=== PATIENT | male | born 1980 | race Two or more races ===

== ENCOUNTER 2018-10-19 15:46 | Emergency (ER) | payer MEDICAID ==
[~2018-10-19] VITALS: Ht 172.7 cm; Wt 74.8 kg
[2018-10-19] MEDS ORDERED: Ketorolac 30mg Inj IV ONE (16:00)
[2018-10-19] MEDS ORDERED: Morphine Sulfate 4mg/ml Inj (IV/IM USE ONLY) IVP ONE (16:00)
[2018-10-19 16:23] VITALS: BP 158/91
[2018-10-19 16:46] LABS: BASOPHILS % (AUTO) 0.8 % (0.0-2.0); EOSINOPHILS % (AUTO) 0.7 % (0.0-3.0); HEMATOCRIT 46.7 % (42.0-52.0); HEMOGLOBIN 15.5 G/DL (14.2-18.0); LYMPHOCYTES % (AUTO) 8.3 % (20.0-45.0); MEAN CORPUSCULAR VOLUME 83 FL (80-99); MONOCYTES % (AUTO) 6.3 % (1.0-10.0); NEUTROPHILS % (AUTO) 83.9 % (45.0-75.0); PLATELET COUNT 153 K/UL (150-450); RED BLOOD COUNT 5.62 M/UL (4.70-6.10); RED CELL DISTRIBUTION WIDTH 12.4 % (11.6-14.8); WHITE BLOOD COUNT 10.6 K/UL (4.8-10.8)
[2018-10-19] MEDS ORDERED: NKM (16:50)
[2018-10-19 16:55] LABS: APPEARANCE,URINE CLEAR; BILIRUBIN, URINE NEGATIVE (NEGATIVE); COLOR,URINE PALE YELLOW; GLUCOSE, URINE (UA) NEGATIVE (NEGATIVE); KETONES,URINE NEGATIVE (NEGATIVE); LEUKOCYTE ESTERASE ,URINE NEGATIVE (NEGATIVE); NITRITE,URINE NEGATIVE (NEGATIVE); PH,URINE 6 (4.5-8.0); PROTEIN,URINE 1+ (NEGATIVE); UROBILINOGEN,URINE NORMAL MG/DL (0.0-1.0)
[2018-10-19 17:06] LABS: ANION GAP 10 mmol/L (5-15); BLOOD UREA NITROGEN 16 mg/dL (7-18); CALCIUM 9.3 MG/DL (8.5-10.1); CARBON DIOXIDE 27 MMOL/L (21-32); CHLORIDE 102 MMOL/L (98-107); CREATININE 1.1 MG/DL (0.55-1.30); POTASSIUM 3.2 MMOL/L (3.5-5.1); SODIUM 139 MMOL/L (136-145)
[2018-10-19 17:15] LABS: ALANINE AMINOTRANSFERASE 34 U/L (12-78); ALBUMIN 4.3 G/DL (3.4-5.0); ALBUMIN/GLOBULIN RATIO 1.1 (1.0-2.7); ALKALINE PHOSPHATASE 106 U/L (46-116); ASPARTATE AMINO TRANSFERASE 39 U/L (15-37); BILIRUBIN,TOTAL 0.4 MG/DL (0.2-1.0)
--- NOTE | 2018-10-19 17:33 | Emergency Room Report ---
History of Present Illness General Chief Complaint: Abdominal Pain Source: Patient, EMS Present Illness HPI Patient presents with left flank pain that is severe. He was seen at [facility] yesterday and told that he has a kidney stone. Had a CAT scan done. The pain is now severe radiating down to his groin. Denies any fevers or chills. He doesn't know how large the stone was that they found yesterday. Apparently he's had multiple stones in the past. Feels nauseated but has not vomited. No hematuria. He tried the pain medicine they prescribed without any help. Pain rated 10/10 burning and aching pressure. Never sent a stone for analysis. No chest pain, headache, URI sy, rashes, joint pain, change in bowels. Allergies: Coded Allergies: No Known Allergies (Unverified , 10/19/18) Patient History Past Medical History: see triage record, other - renal stones Social History: Denies: smoking Social History Narrative from home Reviewed Nursing Documentation: PMH: Agreed; PSxH: Agreed Nursing Documentation-PMH Past Medical History: No Stated History Review of Systems All Other Systems: negative except mentioned in HPI Physical Exam Vital Signs Date Time Temp Pulse Resp B/P (MAP) Pulse Ox O2 Delivery O2 Flow Rate FiO2 10/19/18 15:42 98.6 83 18 179/105 98 Room Air Sp02 EP Interpretation: reviewed, normal General Appearance: alert, GCS 15, mild distress Head: normocephalic Eyes: bilateral eye normal inspection, bilateral eye PERRL ENT: moist mucus membranes Neck: supple Respiratory: lungs clear, normal breath sounds Cardiovascular #1: regular rate, rhythm Cardiovascular #2: 2+ radial (R) Gastrointestinal: normal inspection, normal bowel sounds, non tender, no mass, non-distended Genitourinary: no CVA tenderness Musculoskeletal: back normal, normal range of motion Neurologic: alert, oriented x3, grossly normal Psychiatric: anxious - wih pain Skin: warm/dry, other - sallo Medical Decision Making Diagnostic Impression: Primary Impression: Renal colic on left side ER Course Patient presents with left flank pain with history of renal stones. Differential includes UTI, renal stone, obstruction. We will attempt to get a CT scan results from [facility]. He'll be treated with IV hydration and analgesia. In addition to that labs will be obtained to assess renal function and to exclude infection. Labs with normal CBC, slightly low K and few RBCs in urine. After initial medication the pain is now down to 3/10. We are still awaiting results from [facility]. Records from [facility] reviewed: CT with 2mm stone L with mild hydroureter. Pain resolved 19:20. No more pain. Discussed stone collection for analysis and outpatient treatment plan. Patient stable for outpatient observation and treatment. Laboratory Tests Test 10/19/18 15:50 10/19/18 16:10 10/19/18 16:15 White Blood Count 10.6 K/UL (4.8-10.8) Red Blood Count 5.62 M/UL (4.70-6.10) Hemoglobin 15.5 G/DL (14.2-18.0) Hematocrit 46.7 % (42.0-52.0) Mean Corpuscular Volume 83 FL (80-99) Mean Corpuscular Hemoglobin 27.6 PG (27.0-31.0) Mean Corpuscular Hemoglobin Concent 33.2 G/DL (32.0-36.0) Red Cell Distribution Width 12.4 % (11.6-14.8) Platelet Count 153 K/UL (150-450) Mean Platelet Volume 10.3 FL (6.5-10.1) H Neutrophils (%) (Auto) 83.9 % (45.0-75.0) H Lymphocytes (%) (Auto) 8.3 % (20.0-45.0) L Monocytes (%) (Auto) 6.3 % (1.0-10.0) Eosinophils (%) (Auto) 0.7 % (0.0-3.0) Basophils (%) (Auto) 0.8 % (0.0-2.0) Sodium Level 139 MMOL/L (136-145) Potassium Level 3.2 MMOL/L (3.5-5.1) L Chloride Level 102 MMOL/L (98-107) Carbon Dioxide Level 27 MMOL/L (21-32) Anion Gap 10 mmol/L (5-15) Blood Urea Nitrogen 16 mg/dL (7-18) Creatinine 1.1 MG/DL (0.55-1.30) Estimate Glomerular Filtration Rate > 60 mL/min (>60) Glucose Level 117 MG/DL (74-106) H Calcium Level 9.3 MG/DL (8.5-10.1) Total Bilirubin 0.4 MG/DL (0.2-1.0) Aspartate Amino Transferase (AST) 39 U/L (15-37) H Alanine Aminotransferase (ALT) 34 U/L (12-78) Alkaline Phosphatase 106 U/L (46-116) Total Protein 8.1 G/DL (6.4-8.2) Albumin 4.3 G/DL (3.4-5.0) Globulin 3.8 g/dL Albumin/Globulin Ratio 1.1 (1.0-2.7) Lipase 90 U/L (73-393) Urine Color Pale yellow Urine Appearance Clear Urine pH 6 (4.5-8.0) Urine Specific [place] 1.020 (1.005-1.035) Urine Protein 1+ (NEGATIVE) H Urine Glucose (UA) Negative (NEGATIVE) Urine Ketones Negative (NEGATIVE) Urine Blood 2+ (NEGATIVE) H Urine Nitrite Negative (NEGATIVE) Urine Bilirubin Negative (NEGATIVE) Urine Urobilinogen Normal MG/DL (0.0-1.0) Urine Leukocyte Esterase Negative (NEGATIVE) Urine RBC 2-4 /HPF (0 - 0) H Urine WBC 0-2 /HPF (0 - 0) Urine Squamous Epithelial Cells None /LPF (NONE/OCC) Urine Bacteria None /HPF (NONE) Last Vital Signs Date Time Temp Pulse Resp B/P (MAP) Pulse Ox O2 Delivery O2 Flow Rate FiO2 10/19/18 19:30 98.6 80 20 130/84 100 Room Air Status: improved Disposition: HOME, SELF-CARE Condition: Improved Referrals: NOT CHOSEN IPA/,REFERRING (PCP) Vlad Cruz MD Oct 19, 2018 17:33
[2018-10-19] MEDS ORDERED: Tamsulosin 0.4mg cap ORAL STA (17:57)
[2018-10-19 19:29] VITALS: BP 130/84
[2018-10-19 19:30] VITALS: BP 130/84
[2018-10-19] MEDS ORDERED: Tamsulosin 0.4mg cap ORAL SCH (21:00)
== END 2018-10-19 19:33 | disposition home or self-care (01) ==
LOC: EDBD 15:46 → EMR 16:30
DX: N23 Unspecified renal colic (principal); Z87.442 Personal history of urinary calculi
CPT/HCPCS: 36415; 80053; 81003; 83690; 85025; 96361; 96374; 96375; 99284; J1885; J2270; J2405

== ENCOUNTER 2018-11-02 17:57 | Emergency (ER) | payer MEDICAID ==
[~2018-11-02] VITALS: Ht 170.2 cm; Wt 77.1 kg
[~2018-11-02 17:57] MED LIST: NKM
[2018-11-02 18:43] VITALS: BP 136/81
--- NOTE | 2018-11-02 18:45 | NUR ---
ED Nurse Note: here for eval; patient passed stones in the urine 4 days ago. hx of kidney stone; c/o pain on the right sided abdomen; reports no blood in urine.
[2018-11-02 19:45] VITALS: BP 132/78
--- NOTE | 2018-11-02 19:45 | NUR ---
ED Nurse Note: patient is being discharged from ED alert and oriented x4, ambulatory with a steady gait, VSS. patient acknowledged the need to follow up with PMD within a week if symptoms dont improve. Id band removed, all belongings sent home with patient, prescriptions in hand
--- NOTE | 2018-11-02 19:50 | Emergency Room Report ---
History of Present Illness General Chief Complaint: Abdominal Pain Source: Patient Present Illness HPI Patient presents emergency department today complaining of passing a kidney stone. Patient was diagnosed with kidney stones 11 and seen in our emergency department. Since then he has passed kidney stones feels much better. He brought the stone in here for analysis because he thought he needed to be analyzed. In addition patient complains of some mild right flank pain but very mild. Patient denies any nausea vomiting diarrhea chills. Denies any history urinary frequency denies any sessile pain. No other complaints were noted.No other modifying factors. No other associated signs and symptoms. No other complaints were noted. Allergies: Coded Allergies: No Known Allergies (Unverified , 10/19/18) Patient History Past Medical History: other - Kidney stone Past Surgical History: none Pertinent Family History: none Social History: Denies: smoking, alcohol use, drug use Reviewed Nursing Documentation: PMH: Agreed; PSxH: Agreed Nursing Documentation-PMH Past Medical History: No History, Except For Review of Systems All Other Systems: negative except mentioned in HPI Physical Exam Vital Signs Date Time Temp Pulse Resp B/P (MAP) Pulse Ox O2 Delivery O2 Flow Rate FiO2 11/02/18 18:36 98.4 69 16 136/81 99 Room Air Sp02 EP Interpretation: reviewed, normal General Appearance: normal inspection, well appearing, no apparent distress, alert Head: atraumatic Eyes: bilateral eye normal inspection ENT: normal ENT inspection, hearing grossly normal, normal voice Neck: normal inspection, full range of motion, supple, no bony tend Respiratory: normal inspection, lungs clear, normal breath sounds, no respiratory distress, no retraction, no wheezing Cardiovascular #1: regular rate, rhythm, no edema Gastrointestinal: normal inspection, normal bowel sounds, non tender, soft, no guarding, no hernia Genitourinary: no CVA tenderness Musculoskeletal: normal inspection, back normal, normal range of motion Neurologic: normal inspection, alert, responsive, speech normal Psychiatric: normal inspection, judgement/insight normal, mood/affect normal Skin: normal inspection, normal color, no rash Medical Decision Making Diagnostic Impression: Primary Impression: Kidney calculi ER Course Patient presents emergency department today complaining of recent kidney stone. This kidney stone is passed. He came here further evaluation. He complains of mild right-sided pain but is exam is normal. Differential diagnoses include current kidney stone. Patient denies any fever chest pain short his breath. There is no evidence of UTI. Therefore I felt that no further workup is indicated this time recommend outpatient follow-up. Recommend that if his pain should get worse to return emergency room department advise him of possiblity of appendicitis well.Patient is advised to follow up with primary doctor in 2-3 days and return the emergency room for any worsening symptoms and as needed. Last Vital Signs Date Time Temp Pulse Resp B/P (MAP) Pulse Ox O2 Delivery O2 Flow Rate FiO2 11/02/18 18:36 98.4 69 16 136/81 99 Room Air Status: improved Disposition: HOME, SELF-CARE Condition: Stable Patient Instructions: Kidney Stones Deangelo Esquivel MD Nov 02, 2018 19:50
== END 2018-11-02 19:45 | disposition home or self-care (01) ==
LOC: EMR 18:30
DX: N20.0 Calculus of kidney (principal)
CPT/HCPCS: 99282